=== PATIENT | male | born 1950 | race Hispanic/Latino ===

== ENCOUNTER 2018-04-27 12:37 | Inpatient (IN) | payer MEDICARE, OTHER ==
[2018-04-27] MEDS ORDERED: BABY ASPIRIN PO ONE (13:04)
--- NOTE | 2018-04-27 13:07 | Emergency Department Report ---
Blank Doc - Documentation Documentation: Patient is 67-year-old male with history of atrial fibrillation on Eliquis, hi story of hypertension and diabetes. Patient presented to the ER complaining of heart racing. Patient stated that he was taking his breakfast this morning when all of a sudden his heart rate jumped to 150 beats per minutes. Patient stated that he felt pressure in his chest that radiated to his left arm. Patient stated that symptoms improved now. He stated that he call his appliquer Dr. Amaya was advised him to come to the ER for evaluation. Patient EKG showed atrial fibrillation with no RVR. Labs and x-rays ordered.
[2018-04-27 13:52] LABS: Basophils # (Auto) 0.1 K/mm3 (0.0-0.1); Basophils % (Auto) 0.6 % (0.0-1.8); Eosinophils # (Auto) 0.4 K/mm3 (0.0-0.4); Eosinophils % (Auto) 2.5 % (0.0-4.3); Hematocrit 48.7 % (35.5-45.6); Hemoglobin 16.3 gm/dl (11.8-15.2); Lymphocytes # (Auto) 1.9 K/mm3 (1.2-5.4); Lymphocytes % (Auto) 13.2 % (13.4-35.0); Mean Corpuscular HGB Conc 34 % (32-34); Mean Corpuscular Volume 89 fl (84-94); Monocytes # (Auto) 1.1 K/mm3 (0.0-0.8); Platelet Count 226 K/mm3 (140-440); Red Blood Count 5.48 M/mm3 (3.65-5.03); Red Cell Distribution Width 13.3 % (13.2-15.2)
[2018-04-27 14:05] LABS: INR 1.02 (0.87-1.13); Partial Thromboplastin Time 27.7 Sec. (24.2-36.6)
--- NOTE | 2018-04-27 14:09 | Emergency Department Report ---
ED General Adult HPI - General Chief complaint: Arrhythmia/Palpitations Stated complaint: HEART PROBLEMS Time Seen by Provider: 04/27/18 13:00 Source: patient Mode of arrival: Ambulatory Limitations: No Limitations - History of Present Illness Initial comments: 67-year-old male states that his heart rate went up to 150-160 this morning. He developed tightness of his left arm which was persistent during his tachycardia. It has since resolved. He denies chest pain, pressure or tightness, dizziness, feeling like he was going to pass out. He states he took his usual medicine which includes metoprolol and diltiazem. He did not take an extra dose. He stated his heart rate improved and his left arm tightness resolved. The tightness involving his entire arm. It was not associated with dyspnea sweating or nausea. Patient states he is experienced this left arm tightness with atrial fibrillation in the past. The patient was first seen here in 2013 when he had a pleural effusion and thoracentesis associated with A. fib. 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 fib. He was restarted on Eliquis at that time. He sees Dr. Amaya. He states he was in sinus rhythm for a prolonged period of time prior to that and not on anticoagulants. He also states that perhaps about 3 months ago he had a what appears to be a nuclear stress test which was not followed by further study and presumed to be negative. He does have multiple cardiac risk factors but no known history of coronary artery disease. -: Gradual, hour(s) (arm tightness for approximately 1 hour ), days(s) (A. fib for days) Location: left, upper extremity Radiation: non-radiation Quality: other (tightness) Consistency: now resolved Improves with: none Worsens with: none Associated Symptoms: denies other symptoms (except as above described patient is aware of his irregular heart rate) Treatments Prior to Arrival: none - Related Data Home Medications Medication Instructions Recorded Confirmed Last Taken metFORMIN [Glucophage] 1,000 mg PO DAILY 04/24/13 04/27/18 07/06/13 1000mg Apixaban [Eliquis] 5 mg PO BID 04/27/18 04/27/18 Unknown Diltiazem HCl [Diltiazem ER] 180 mg PO DAILY 04/27/18 04/27/18 Unknown Metoprolol Tartrate 50 mg PO BID 04/27/18 04/27/18 Unknown Olmesartan (Nf) [Benicar (Nf)] 40 mg PO QDAY 04/27/18 04/27/18 Unknown Allergies Allergy/AdvReac Type Severity Reaction Status Date / Time No Known Allergies Allergy Verified 07/07/13 11:13 ED Review of Systems ROS: Stated complaint: HEART PROBLEMS Other details as noted in HPI Constitutional: denies: chills, fever Eyes: denies: eye pain, eye discharge, vision change ENT: denies: ear pain, throat pain Respiratory: denies: cough, shortness of breath, wheezing Cardiovascular: palpitations, other. denies: chest pain Endocrine: no symptoms reported Gastrointestinal: denies: abdominal pain, nausea, diarrhea Genitourinary: denies: urgency, dysuria Musculoskeletal: denies: back pain, joint swelling, arthralgia Skin: denies: rash, lesions Neurological: denies: headache, weakness, paresthesias Psychiatric: denies: anxiety, depression Hematological/Lymphatic: denies: easy bleeding, easy bruising ED Past Medical Hx - Past Medical History Hx Hypertension: Yes Hx Congestive Heart Failure: No Hx Diabetes: Yes Hx Arthritis: Yes Hx Asthma: No Hx COPD: No Additional medical history: A fib, spinal stenosis - Surgical History Past Surgical History?: No - Social History Smoking Status: Never Smoker Substance Use Type: None - Medications Home Medications: Home Medications Medication Instructions Recorded Confirmed Last Taken Type metFORMIN [Glucophage] 1,000 mg PO DAILY 04/24/13 04/27/18 07/06/13 History 1000mg Apixaban [Eliquis] 5 mg PO BID 04/27/18 04/27/18 Unknown History Diltiazem HCl [Diltiazem ER] 180 mg PO DAILY 04/27/18 04/27/18 Unknown History Metoprolol Tartrate 50 mg PO BID 04/27/18 04/27/18 Unknown History Olmesartan (Nf) [Benicar (Nf)] 40 mg PO QDAY 04/27/18 04/27/18 Unknown History ED Physical Exam - General Limitations: No Limitations General appearance: alert, in no apparent distress - Head Head exam: Present: atraumatic, normocephalic - Eye Eye exam: Present: normal appearance. Absent: scleral icterus - ENT ENT exam: Present: mucous membranes moist - Neck Neck exam: Present: normal inspection. Absent: tenderness, meningismus - Respiratory Respiratory exam: Present: normal lung sounds bilaterally. Absent: respiratory distress - Cardiovascular Cardiovascular Exam: Present: regular rate, irregular rhythm. Absent: systolic murmur, diastolic murmur, rubs, gallop - GI/Abdominal GI/Abdominal exam: Present: soft, normal bowel sounds. Absent: distended, t enderness, guarding, rebound - Rectal Rectal exam: Present: deferred - Extremities Exam Extremities exam: Present: normal inspection - Back Exam Back exam: Present: normal inspection - Neurological Exam Neurological exam: Present: alert, oriented X3, other (patient is not suspected of acute stroke he does say he has right lower extremity weakness secondary to spinal stenosis ). Absent: CN II-XII intact (perhaps slight left facial asymmetry), motor sensory deficit (no acute focal deficit) - Psychiatric Psychiatric exam: Present: normal affect, normal mood - Skin Skin exam: Present: warm, dry, intact, normal color. Absent: rash ED Course Vital Signs 04/27/18 04/27/18 04/27/18 12:48 13:40 13:46 Temperature 97.8 F Pulse Rate 101 H 81 79 Respiratory 18 15 15 Rate Blood Pressure 155/87 O2 Sat by Pulse 96 Oximetry 04/27/18 04/27/18 04/27/18 14:00 14:16 14:30 Temperature Pulse Rate 102 H 97 H 95 H Respiratory 16 19 18 Rate Blood Pressure 141/91 148/82 140/77 O2 Sat by Pulse Oximetry 04/27/18 14:46 Temperature Pulse Rate 93 H Respiratory 16 Rate Blood Pressure 132/87 O2 Sat by Pulse Oximetry - Reevaluation(s) Reevaluation #1: I discussed the case with Dr. Bowers. He requested patient be admitted to telemetry further care and evaluation. Consultation as per Dr. Bowers. 04/27/18 15:30 ED Medical Decision Making - Lab Data Result diagrams: 04/27/18 13:28 04/27/18 13:28 Laboratory Results - last 24 hr 04/27/18 04/27/18 04/27/18 13:28 13:28 13:28 WBC 14.2 H RBC 5.48 H Hgb 16.3 H Hct 48.7 H MCV 89 MCH 30 MCHC 34 RDW 13.3 Plt Count 226 Lymph % (Auto) 13.2 L [place] % (Auto) 8.0 H Eos % (Auto) 2.5 Baso % (Auto) 0.6 Lymph # 1.9 [place] # 1.1 H Eos # 0.4 Baso # 0.1 Seg Neutrophils % 75.7 H Seg Neutrophils # 10.8 H PT 13.8 INR 1.02 APTT 27.7 Sodium 140 Potassium 4.2 Chloride 102.0 Carbon Dioxide 28 Anion Gap 14 BUN 13 Creatinine 1.0 Estimated GFR > 60 BUN/Creatinine Ratio 13 Glucose 150 H Calcium 9.2 Troponin T < 0.010 - EKG Data -: EKG Interpreted by Me Rate: normal (atrial fibrillation at 85) - EKG Data Interpretation: no acute changes - Radiology Data Radiology results: report reviewed Chest x-ray no acute process Critical care attestation.: If time is entered above; I have spent that time in minutes in the direct care of this critically ill patient, excluding procedure time. ED Disposition Clinical Impression: Paroxysmal atrial fibrillation with RVR, Anginal equivalent Disposition: DC-09 OP ADMIT IP TO THIS HOSP Is pt being admited?: Yes Does the pt Need Aspirin: Yes Condition: Stable Instructions: Angina (ED) Referrals: PRIMARY CARE, [Primary Care Provider] - 3-5 Days Time of Disposition: 15:31
[2018-04-27 14:13] LABS: BUN/Creatinine Ratio 13; Blood Urea Nitrogen 13 mg/dL (9-20); Calcium 9.2 mg/dL (8.4-10.2); Hemolysis Index 17
--- NOTE | 2018-04-27 14:51 | XRay Report ---
ROUTINE CHEST, TWO VIEWS: HISTORY: chest pain. The trachea, heart, mediastinal contour, lung qureshi and bony thorax are unremarkable. IMPRESSION: No acute cardiopulmonary process.
[2018-04-27] MEDS ORDERED: ASPIRIN ONE (15:59)
--- NOTE | 2018-04-27 23:14 | History and Physical Report ---
History of Present Illness Date of examination: 04/27/18 Date of admission: 04/27/18 15:32 Chief complaint: Palpitations since AM History of present illness: 67-year-old male with pmh of HTN,T2dm Afib comes in for palitations and L arm tightness.No chest pain.No diaphoresis or SOB.Palpitations intermittent today.Afib was diagnosed about 3 months ago and was started on Eliquis.He follows with [facility] -Dr Amaya.No exertional dyspnea or chest pain.Apparently had a stress test 3 months ago which was negative.No cardiac cath in the past. Past Medical History Hx Hypertension: Yes Hx Diabetes: Yes Hx Arthritis: Yes Additional medical history: A fib, spinal stenosis Surgical History Past Surgical History?: No Social History Smoking Status: Never Smoker Substance Use Type: None Family History Htn Medications Home Medications: Home Medications Medication Instructions Recorded Confirmed Last Taken Type metFORMIN [Glucophage] 1,000 mg PO DAILY 04/24/13 04/27/18 07/06/13 History 1000mg Apixaban [Eliquis] 5 mg PO BID 04/27/18 04/27/18 Unknown History Diltiazem HCl [Diltiazem ER] 180 mg PO DAILY 04/27/18 04/27/18 Unknown History Metoprolol Tartrate 50 mg PO BID 04/27/18 04/27/18 Unknown History Olmesartan (Nf) [Benicar (Nf)] 40 mg PO QDAY 04/27/18 04/27/18 Unknown History Review of Systems ROS: Stated complaint: HEART PROBLEMS Other details as noted in HPI Constitutional: denies: chills, fever Eyes: denies: eye pain, eye discharge, vision change ENT: denies: ear pain, throat pain Respiratory: denies: cough, shortness of breath, wheezing Cardiovascular: palpitations, other. denies: chest pain Endocrine: no symptoms reported Gastrointestinal: denies: abdominal pain, nausea, diarrhea Genitourinary: denies: urgency, dysuria Musculoskeletal: denies: back pain, joint swelling, arthralgia Skin: denies: rash, lesions Neurological: denies: headache, weakness, paresthesias Psychiatric: denies: anxiety, depression Hematological/Lymphatic: denies: easy bleeding, easy bruising Medications and Allergies Allergies Allergy/AdvReac Type Severity Reaction Status Date / Time No Known Allergies Allergy Verified 03/19/14 11:13 Home Medications Medication Instructions Recorded Confirmed Last Taken Type metFORMIN [Glucophage] 1,000 mg PO DAILY 04/24/13 04/27/18 07/06/13 History 1000mg Apixaban [Eliquis] 5 mg PO BID 04/27/18 04/27/18 Unknown History Diltiazem HCl [Diltiazem ER] 180 mg PO DAILY 04/27/18 04/27/18 Unknown History Metoprolol Tartrate 50 mg PO BID 04/27/18 04/27/18 Unknown History Olmesartan (Nf) [Benicar (Nf)] 40 mg PO QDAY 04/27/18 04/27/18 Unknown History Exam - Constitutional Vitals: Temp Pulse Resp BP Pulse Ox 97.6 F 58 L 17 104/66 96 04/27/18 19:39 04/27/18 19:39 04/27/18 22:00 04/27/18 19:39 04/27/18 22:00 General appearance: Present: no acute distress, well-nourished - EENT Eyes: Present: PERRL ENT: hearing intact, clear oral mucosa - Neck Neck: Present: supple, normal ROM - Respiratory Respiratory effort: normal Respiratory: bilateral: CTA - Cardiovascular Heart rate: 98 Rhythm: regular Heart Sounds: Present: S1 & S2. Absent: rub, click - Extremities Extremities: no ischemia, pulses intact, pulses symmetrical, No edema Peripheral Pulses: within normal limits - Abdominal General gastrointestinal: Present: soft, non-tender, non-distended, normal bowel sounds Male genitourinary: Present: normal - Rectal Rectal Exam: deferred - Integumentary Integumentary: Present: clear, warm, dry - Musculoskeletal Musculoskeletal: gait normal, strength equal bilaterally - Psychiatric Psychiatric: appropriate mood/affect, intact judgment & insight - Neurologic Neurologic: CNII-XII intact, moves all extremities - Allied Health Allied health notes reviewed: nursing Results - Labs CBC & Chem 7: 04/27/18 13:28 04/27/18 13:28 Labs: Laboratory Last Values WBC 14.2 K/mm3 (4.5-11.0) H 04/27/18 13:28 RBC 5.48 M/mm3 (3.65-5.03) H 04/27/18 13:28 Hgb 16.3 gm/dl (11.8-15.2) H 04/27/18 13:28 Hct 48.7 % (35.5-45.6) H 04/27/18 13:28 MCV 89 fl (84-94) 04/27/18 13:28 MCH 30 pg (28-32) 04/27/18 13:28 MCHC 34 % (32-34) 04/27/18 13:28 RDW 13.3 % (13.2-15.2) 04/27/18 13:28 Plt Count 226 K/mm3 (140-440) 04/27/18 13:28 Lymph % (Auto) 13.2 % (13.4-35.0) L 04/27/18 13:28 [place] % (Auto) 8.0 % (0.0-7.3) H 04/27/18 13:28 Eos % (Auto) 2.5 % (0.0-4.3) 04/27/18 13:28 Baso % (Auto) 0.6 % (0.0-1.8) 04/27/18 13:28 Lymph # 1.9 K/mm3 (1.2-5.4) 04/27/18 13:28 [place] # 1.1 K/mm3 (0.0-0.8) H 04/27/18 13:28 Eos # 0.4 K/mm3 (0.0-0.4) 04/27/18 13:28 Baso # 0.1 K/mm3 (0.0-0.1) 04/27/18 13:28 Seg Neutrophils % 75.7 % (40.0-70.0) H 04/27/18 13:28 Seg Neutrophils # 10.8 K/mm3 (1.8-7.7) H 04/27/18 13:28 PT 13.8 Sec. (12.2-14.9) 04/27/18 13:28 INR 1.02 (0.87-1.13) 04/27/18 13:28 APTT 27.7 Sec. (24.2-36.6) 04/27/18 13:28 Sodium 140 mmol/L (137-145) 04/27/18 13:28 Potassium 4.2 mmol/L (3.6-5.0) 04/27/18 13:28 Chloride 102.0 mmol/L (98-107) 04/27/18 13:28 Carbon Dioxide 28 mmol/L (22-30) 04/27/18 13:28 Anion Gap 14 mmol/L 04/27/18 13:28 BUN 13 mg/dL (9-20) 04/27/18 13:28 Creatinine 1.0 mg/dL (0.8-1.5) 04/27/18 13:28 Estimated GFR > 60 ml/min 04/27/18 13:28 BUN/Creatinine Ratio 13 % 04/27/18 13:28 Glucose 150 mg/dL (75-100) H 04/27/18 13:28 Calcium 9.2 mg/dL (8.4-10.2) 04/27/18 13:28 Troponin T < 0.010 ng/mL (0.00-0.029) 04/27/18 19:39 - Imaging and Cardiology EKG: report reviewed (A fib 88/min) Chest x-ray: report reviewed (NAF) Assessment and Plan Advance Directives: Yes (Full code) VTE prophylaxis?: Chemical Plan of care discussed with patient/family: Yes - Patient Problems (1) Anginal equivalent Current Visit: Yes Status: Acute Plan to address problem: Had a recent Lexiscan-3 months ago will defer to Cardiology reg stress test Will get Serial Troponins and ECHO (2) Diabetes Onset Date: 05/01/13 Current Visit: No Status: Chronic Qualifiers: Diabetes mellitus type: type 2 Plan to address problem: Cont Metformin and coverage Check A1c (3) Hypertension Onset Date: 05/01/13 Current Visit: No Status: Chronic Qualifiers: Hypertension type: essential hypertension Qualified Code(s): I10 - Essential (primary) hypertension Plan to address problem: Cont antihypertensives (4) Paroxysmal atrial fibrillation with RVR Current Visit: Yes Status: Acute Plan to address problem: Now rate controlled Cont Eliquis If RVR to add Amiodarone if Cardiology agrees (5) Leukocytosis Current Visit: Yes Status: Acute Qualifiers: Leukocytosis type: unspecified Qualified Code(s): D72.829 - Elevated white blood cell count, unspecified Plan to address problem: Probably demargination (6) DVT prophylaxis Current Visit: Yes Status: Acute Plan to address problem: On Eliquis and GI prophlaxis
[2018-04-27] MEDS ORDERED: TYLENOL PO PRN (23:45)
[2018-04-27] MEDS ORDERED: ZOFRAN IV PRN (23:45)
[2018-04-27] MEDS ORDERED: DILAUDID IV PRN (23:45)
[2018-04-27] MEDS ORDERED: AMBIEN PO PRN (23:45)
[2018-04-27] MEDS ORDERED: SODIUM CHLORIDE FLUSH SYRINGE 10 ML IV PRN (23:45)
[2018-04-27] MEDS ORDERED: PERCOCET 5/325 PO PRN (23:45)
[2018-04-28] MEDS: LOPRESSOR PO SCH ×2 (00:32→10:42)
[2018-04-28] MEDS: ELIQUIS PO SCH ×3 (00:32→21:25)
[2018-04-28 06:02] LABS: Basophils # (Auto) 0.1 K/mm3 (0.0-0.1); Basophils % (Auto) 0.8 % (0.0-1.8); Eosinophils # (Auto) 0.3 K/mm3 (0.0-0.4); Eosinophils % (Auto) 2.6 % (0.0-4.3); Hematocrit 47.6 % (35.5-45.6); Hemoglobin 16.2 gm/dl (11.8-15.2); Lymphocytes # (Auto) 2.6 K/mm3 (1.2-5.4); Lymphocytes % (Auto) 24.3 % (13.4-35.0); Mean Corpuscular HGB Conc 34 % (32-34); Mean Corpuscular Volume 88 fl (84-94); Monocytes % (Auto) 8.8 % (0.0-7.3); Platelet Count 193 K/mm3 (140-440); Red Blood Count 5.39 M/mm3 (3.65-5.03); Red Cell Distribution Width 13.3 % (13.2-15.2)
[2018-04-28 06:18] LABS: Alanine Aminotransferase 21 units/L (7-56); Albumin 3.6 g/dL (3.9-5); BUN/Creatinine Ratio 19; Blood Urea Nitrogen 15 mg/dL (9-20); Calcium 8.8 mg/dL (8.4-10.2); Hemolysis Index 17
[2018-04-28] MEDS: HumaLOG SUB-Q SCH ×4 (07:59→23:26)
[2018-04-28] MEDS ORDERED: NON-FORMULARY (Diltiazem Hcl [Diltiazem 24hr Er] 180 MG) PO SCH (10:00)
[2018-04-28] MEDS ORDERED: OLMESARTAN 40 MG PO SCH (10:00)
[2018-04-28] MEDS: CARDIZEM CD PO SCH (10:40)
[2018-04-28] MEDS: COZAAR PO SCH (10:41)
[2018-04-28] MEDS: PEPCID PO SCH ×2 (10:42→21:24)
[2018-04-28] MEDS: SODIUM CHLORIDE FLUSH SYRINGE 10 ML IV SCH ×2 (10:43→21:24)
[2018-04-28] MEDS: GLUCOPHAGE PO SCH (10:46)
--- NOTE | 2018-04-28 10:46 | Consultation ---
Addendum entered and electronically signed by JANET LANDRY MD 04/28/18 14:01: The patient has a history of paroxysmal atrial fibrillation in a recent outpatie nt management of an acute exacerbation of atrial fibrillation. On his last office visit a week ago, atrial fibrillation had resolved on management with diltiazem and metoprolol. He presents to the hospital at this time with a recurrence of symptomatic atrial fibrillation. Recommendations: In addition to AV felicia blocking agents, will add amiodarone to his regimen to assist with atrial fibrillation suppression. Tomorrow morning, if he remains in symptomatic fibrillation, will offer a NAIF guided direct current cardioversion. Original Note: History of Present Illness Consult date: 04/28/18 Consult reason: atrial fibrillation History of present illness: Patient is a 67 year old male with a history of paroxysmal atrial fibrillation on eliquis for CVA prophylaxis who presented with complaints of palpitations. Patient denies unusual shortness of breath, chest pain and dizziness. There were no reports of syncope. An ECG on presentation shows atrial fibrillation with a well controlled ventricular rate. A cardiac consultation was requested for further evaluation. Patient is [facility] to [facility]. His latest cardiac workup was done as an outpatient 3 months ago. He had a normal persantine thallium stress test and a normal ejection fraction, 60% on an echocardiogram. Medications and Allergies Allergies Allergy/AdvReac Type Severity Reaction Status Date / Time No Known Allergies Allergy Verified 07/07/13 11:13 Home Medications Medication Instructions Recorded Confirmed Last Taken Type metFORMIN [Glucophage] 1,000 mg PO DAILY 04/24/13 04/27/18 07/06/13 History 1000mg Apixaban [Eliquis] 5 mg PO BID 04/27/18 04/27/18 Unknown History Diltiazem HCl [Diltiazem ER] 180 mg PO DAILY 04/27/18 04/27/18 Unknown History Metoprolol Tartrate 50 mg PO BID 04/27/18 04/27/18 Unknown History Olmesartan (Nf) [Benicar (Nf)] 40 mg PO QDAY 04/27/18 04/27/18 Unknown History Active Meds: Active Medications Acetaminophen (Tylenol) 650 mg PO Q4H PRN PRN Reason: Pain MILD(1-3)/Fever >100.5/CHA Apixaban (Eliquis) 5 mg PO BID [facility]; Protocol Last Admin: 04/28/18 00:32 Dose: 5 mg Documented by: Diltiazem HCl (Cardizem Cd) 180 mg PO QDAY [facility] Famotidine (Pepcid) 20 mg PO BID [facility] Hydromorphone HCl (Dilaudid) 0.5 mg IV Q3H PRN PRN Reason: Pain , Severe (7-10) Insulin Human Lispro (Humalog) 0 unit SUB-Q ACHS [facility]; Protocol Last Admin: 04/28/18 07:59 Dose: Not Given Documented by: Losartan Potassium (Cozaar) 100 mg PO QDAY [facility] Metformin HCl (Glucophage) 1,000 mg PO QDDIAB [facility] Metoprolol Tartrate (Lopressor) 50 mg PO BID [facility] Last Admin: 04/28/18 00:32 Dose: Not Given Documented by: Ondansetron HCl (Zofran) 4 mg IV Q8H PRN PRN Reason: Nausea And Vomiting Oxycodone/Acetaminophen (Percocet 5/325) 1 tab PO Q6H PRN PRN Reason: Pain, Moderate (4-6) Sodium Chloride (Sodium Chloride Flush Syringe 10 Ml) 10 ml IV BID [facility] Sodium Chloride (Sodium Chloride Flush Syringe 10 Ml) 10 ml IV PRN PRN PRN Reason: LINE FLUSH Zolpidem Tartrate (Ambien) 5 mg PO QHS PRN PRN Reason: Insomnia Physical Examination Vital Signs Temp Pulse Resp BP Pulse Ox 97.8 F 101 H 18 155/87 96 04/27/18 12:48 04/27/18 12:48 04/27/18 12:48 04/27/18 12:48 04/27/18 12:48 General appearance: no acute distress HEENT: Positive: PERRL Cardiac: Positive: irregularly irregular Lungs: Positive: Decreased Breath Sounds Neuro: Positive: Grossly Intact Extremities: Absent: edema Results 04/28/18 04:50 04/28/18 04:50 Cardiac Enzymes 04/28/18 Range/Units 04:50 AST 11 (5-40) units/L Coagulation 04/27/18 Range/Units 13:28 PT 13.8 (12.2-14.9) Sec. INR 1.02 (0.87-1.13) APTT 27.7 (24.2-36.6) Sec. CBC 04/27/18 04/28/18 Range/Units 13:28 04:50 WBC 14.2 H 10.9 (4.5-11.0) K/mm3 RBC 5.48 H 5.39 H (3.65-5.03) M/mm3 Hgb 16.3 H 16.2 H (11.8-15.2) gm/dl Hct 48.7 H 47.6 H (35.5-45.6) % Plt Count 226 193 (140-440) K/mm3 Lymph # 1.9 2.6 (1.2-5.4) K/mm3 [place] # 1.1 H 1.0 H (0.0-0.8) K/mm3 Eos # 0.4 0.3 (0.0-0.4) K/mm3 Baso # 0.1 0.1 (0.0-0.1) K/mm3 Comprehensive Metabolic Panel 04/27/18 04/28/18 Range/Units 13:28 04:50 Sodium 140 138 (137-145) mmol/L Potassium 4.2 3.6 (3.6-5.0) mmol/L Chloride 102.0 100.8 (98-107) mmol/L Carbon Dioxide 28 25 (22-30) mmol/L BUN 13 15 (9-20) mg/dL Creatinine 1.0 0.8 (0.8-1.5) mg/dL Glucose 150 H 116 H (75-100) mg/dL Calcium 9.2 8.8 (8.4-10.2) mg/dL AST 11 (5-40) units/L ALT 21 (7-56) units/L Alkaline Phosphatase 99 (35-129) units/L Total Protein 5.8 L (6.3-8.2) g/dL Albumin 3.6 L (3.9-5) g/dL Assessment and Plan Atrial fibrillation, persists on eliquis for oral anticoagulation and metoprolol and diltiazem. Hypertension Diabetes 01/2018 cardiac test results: normal EF, 60% on echo. normal persantine thallium stress test. negative carotid doppler.
--- NOTE | 2018-04-28 13:24 | Progress Note ---
Assessment and Plan Assessment and plan: Patient is a 67 yo white man with a history of hypertension, type 2 DM and Afib on eliquis who presents to [facility] ED with palpitations and left arm numbness. He adamantly denies chest pains. He was found to have afib RVR, HR at home was 140s-150s. He took his medication 15 minutes prior to symptoms and high heart rate. Afib with RVR, highly symptomatic: treat with amiodarone, Cardiology consulted, possible Cardioversion tomorrow Type 2 DM: ssi Hypertension: bblocker History Interval history: Patient was seen and examined. Follow-up on current diagnosis of Afib. Overnight uneventful. Patient denies any chest pain, shortness breath, nausea/vomiting or severe headaches. Imaging, nursing note, chart, labs and old chart reviewed. Discussed with patient. Hospitalist Physical - Physical exam Narrative exam: Gen: WDWN, NAD, Awake, Alert, Orientated HEENT: NCAT, EOMI, PERRL, OP Clear Neck: supple, no adenopathy, no thyromegaly, no JVD CVS/Heart: irregular irregular, normal S1S2, pulses present bilaterally Chest/Lungs: CTA B, Symmetrical chest expansion, good air entry bilaterally GI/Abdomen: soft, NTND, good bowel sounds, no guarding or rebound /Bladder: no suprapubic tenderness, no CVA or paraspinal tenderness Extermity/Skin: no c/c/e, no obvious rash MSK: FROM x 4 Neuro: CN 2-12 grossly intact, no new focal deficits Psych: calm - Constitutional Vitals: Temp Pulse Resp BP Pulse Ox 98.4 F 92 H 20 114/69 97 04/28/18 10:40 04/28/18 10:42 04/28/18 10:40 04/28/18 10:42 04/28/18 10:40 General appearance: Present: no acute distress Results - Labs CBC & Chem 7: 04/28/18 04:50 04/28/18 04:50 Labs: Laboratory Last Values WBC 10.9 K/mm3 (4.5-11.0) 04/28/18 04:50 RBC 5.39 M/mm3 (3.65-5.03) H 04/28/18 04:50 Hgb 16.2 gm/dl (11.8-15.2) H 04/28/18 04:50 Hct 47.6 % (35.5-45.6) H 04/28/18 04:50 MCV 88 fl (84-94) 04/28/18 04:50 MCH 30 pg (28-32) 04/28/18 04:50 MCHC 34 % (32-34) 04/28/18 04:50 RDW 13.3 % (13.2-15.2) 04/28/18 04:50 Plt Count 193 K/mm3 (140-440) 04/28/18 04:50 Lymph % (Auto) 24.3 % (13.4-35.0) 04/28/18 04:50 [place] % (Auto) 8.8 % (0.0-7.3) H 04/28/18 04:50 Eos % (Auto) 2.6 % (0.0-4.3) 04/28/18 04:50 Baso % (Auto) 0.8 % (0.0-1.8) 04/28/18 04:50 Lymph # 2.6 K/mm3 (1.2-5.4) 04/28/18 04:50 [place] # 1.0 K/mm3 (0.0-0.8) H 04/28/18 04:50 Eos # 0.3 K/mm3 (0.0-0.4) 04/28/18 04:50 Baso # 0.1 K/mm3 (0.0-0.1) 04/28/18 04:50 Seg Neutrophils % 63.5 % (40.0-70.0) 04/28/18 04:50 Seg Neutrophils # 6.9 K/mm3 (1.8-7.7) 04/28/18 04:50 PT 13.8 Sec. (12.2-14.9) 04/27/18 13:28 INR 1.02 (0.87-1.13) 04/27/18 13:28 APTT 27.7 Sec. (24.2-36.6) 04/27/18 13:28 Sodium 138 mmol/L (137-145) 04/28/18 04:50 Potassium 3.6 mmol/L (3.6-5.0) 04/28/18 04:50 Chloride 100.8 mmol/L (98-107) 04/28/18 04:50 Carbon Dioxide 25 mmol/L (22-30) 04/28/18 04:50 Anion Gap 16 mmol/L 04/28/18 04:50 BUN 15 mg/dL (9-20) 04/28/18 04:50 Creatinine 0.8 mg/dL (0.8-1.5) 04/28/18 04:50 Estimated GFR > 60 ml/min 04/28/18 04:50 BUN/Creatinine Ratio 19 % 04/28/18 04:50 Glucose 116 mg/dL (75-100) H 04/28/18 04:50 Hemoglobin A1c 6.8 % (4-6) H 04/27/18 Unknown Calcium 8.8 mg/dL (8.4-10.2) 04/28/18 04:50 Total Bilirubin 0.40 mg/dL (0.1-1.2) 04/28/18 04:50 AST 11 units/L (5-40) 04/28/18 04:50 ALT 21 units/L (7-56) 04/28/18 04:50 Alkaline Phosphatase 99 units/L (35-129) 04/28/18 04:50 Troponin T < 0.010 ng/mL (0.00-0.029) 04/27/18 19:39 Total Protein 5.8 g/dL (6.3-8.2) L 04/28/18 04:50 Albumin 3.6 g/dL (3.9-5) L 04/28/18 04:50 Albumin/Globulin Ratio 1.6 % 04/28/18 04:50
[2018-04-28] MEDS ORDERED: CORDARONE 150 MG in D5W 97 ML IV ONE (14:00)
[2018-04-28] MEDS: CORDARONE PO SCH (21:25)
[2018-04-29] MEDS: HumaLOG SUB-Q SCH ×2 (07:48→12:05)
[2018-04-29] MEDS ORDERED: DIPRIVAN 10 MG/ML IV ONE ×2 (08:10)
[2018-04-29] MEDS ORDERED: XYLOCAINE MPF 2% ONE (08:11)
--- NOTE | 2018-04-29 08:23 | Progress Note ---
Assessment and Plan Atrial fibrillation, paroxysmal Patient is back in SR spontaneously Systemic Hypertension Diabetes 01/2018 cardiac test results: normal EF, 60% on echo. normal persantine thallium stress test. negative carotid doppler Recommendations: May go home on the following regimen Diltiazem CD 180 mg po daily Amiodarone 200 mg po bid Eliquis 5 mg po bid Follow-up with Dr Amaya will be scheduled prior to discharge Subjective Date of service: 04/29/18 Principal diagnosis: Atrial fibrillation with RVR Interval history: Patient is back in SR this morning He denies chest pain or shortness of breath NAIF cardioversion cancelled Objective Vital Signs Temp Pulse Pulse Resp Resp BP Pulse Ox 04/29/18 04:31 98.1 F 54 L 20 123/71 97 04/29/18 00:02 98.5 F 56 L 20 122/70 98 04/28/18 22:00 60 17 04/28/18 21:48 97 04/28/18 20:07 97.9 F 58 L 20 125/67 99 04/28/18 19:48 17 04/28/18 19:09 59 L 04/28/18 16:31 98.1 F 57 L 20 127/68 98 04/28/18 16:00 58 L 04/28/18 10:42 92 H 114/69 04/28/18 10:41 92 H 114/69 04/28/18 10:40 98.4 F 97 H 20 114/69 97 - Physical Examination HEENT: Positive: PERRL Neck: Positive: neck supple Cardiac: Positive: Reg Rate and Rhythm Lungs: Positive: Normal Exam Neuro: Positive: Grossly Intact Extremities: Absent: edema - Imaging and Cardiology EKG: report reviewed (A fib 88/min)
[2018-04-29] MEDS ORDERED: NACL 0.9% 1000 ML 1,000 ML IV SCH (09:00)
[2018-04-29] MEDS ORDERED: HURRICAINE ONE 20% TOPICAL SPRAY MM NR (09:00)
[2018-04-29] MEDS: PEPCID PO SCH (09:46)
[2018-04-29] MEDS: CORDARONE PO SCH (09:46)
[2018-04-29] MEDS: GLUCOPHAGE PO SCH (09:46)
[2018-04-29] MEDS: ELIQUIS PO SCH (09:46)
[2018-04-29] MEDS: CARDIZEM CD PO SCH (09:47)
[2018-04-29] MEDS: COZAAR PO SCH (09:48)
[2018-04-29] MEDS: SODIUM CHLORIDE FLUSH SYRINGE 10 ML IV SCH (09:48)
--- NOTE | 2018-04-29 12:28 | Discharge Summary ---
Providers - Providers Date of Admission: 04/27/18 15:32 Date of discharge: 04/29/18 Attending physician: JEANETH SCHAFER 04/27/18 23:45 Consult to Physician [CONS] Routine Comment: Consulting Provider: JANET LANDRY Physician Instructions: Reason For Exam: Chest pain and A fib Primary care physician: [employer] Hospitalization Condition: Stable Hospital course: Patient is a 67 yo white man with a history of hypertension, type 2 DM and Afib on eliquis who presents to [facility] ED with palpitations and left arm numbness. He adamantly denies chest pains. He was found to have afib RVR, HR at home was 140s-150s. He took his medication 15 minutes prior to symptoms and high heart rate. Afib with RVR, highly symptomatic: treated with amiodarone which he converted to sinus and scheduled Cardioversion was cancelled. Type 2 DM: Hypertension: New meds: Diltiazem CD 180 mg po daily Amiodarone 200 mg po bid Eliquis 5 mg po bid Disposition: TO HOME OR SELFCARE Time spent for discharge: 32 min Core Measure Documentation - Palliative Care Palliative Care/ Comfort Measures: Not Applicable - Core Measures Any of the following diagnoses?: none - VTE Discharge Requirements Deep Vein Thrombosis/Pulmonary Embolism Present on Admission: No Has pt received <5 days of overlap therapy or INR<2.0: No Anticoagulant overlap therapy prescribed at discharge: No Contraindication No Overlap Therapy order at DC: Not Indicated Exam - Physical Exam Narrative exam: Gen: WDWN, NAD, Awake, Alert, Orientated HEENT: NCAT, EOMI, PERRL, OP Clear Neck: supple, no adenopathy, no thyromegaly, no JVD CVS/Heart: rrr, normal S1S2, pulses present bilaterally Chest/Lungs: CTA B, Symmetrical chest expansion, good air entry bilaterally GI/Abdomen: soft, NTND, good bowel sounds, no guarding or rebound /Bladder: no suprapubic tenderness, no CVA or paraspinal tenderness Extermity/Skin: no c/c/e, no obvious rash MSK: FROM x 4 Neuro: CN 2-12 grossly intact, no new focal deficits Psych: calm - Constitutional Vitals: Temp Pulse Resp BP Pulse Ox 97.8 F 61 16 116/67 98 04/29/18 07:23 04/29/18 09:48 04/29/18 07:23 04/29/18 09:48 04/29/18 07:23 Plan Activity: other (no strenous activity unless cleared by Cardiology) Diet: low salt, diabetic Follow up with: PRIMARY CARE, [Primary Care Provider] - 3-5 Days JANET LANDRY MD [Staff Physician] - 7 Days Prescriptions: Amiodarone [Cordarone 200 MG TAB] 200 mg PO BID #60 tablet Apixaban [Eliquis] 5 mg PO BID #60 tablet Diltiazem HCl [Diltiazem 24Hr ER] 180 mg PO DAILY #30 tab.er.24h
[2018-04-29 14:22] VITALS: BP 137/74
[2018-04-30] MEDS ORDERED: CORDARONE PO SCH (10:00)
== END 2018-04-29 14:26 | disposition home or self-care (01) | DRG 310 ==
LOC: ED 12:37 → 4A 15:32
PROVIDERS: ADMIT Internal Medicine; ATTEND Internal Medicine
DX: I48.0 Paroxysmal atrial fibrillation (principal); I20.8 Other forms of angina pectoris; E11.9 Type 2 diabetes mellitus without complications; I10 Essential (primary) hypertension; D72.829 Elevated white blood cell count, unspecified; M19.90 Unspecified osteoarthritis, unspecified site; Z79.899 Other long term (current) drug therapy; Z82.49 Family history of ischemic heart disease and other diseases of the circulatory system
CPT/HCPCS: 36415; 71046; 80048; 80053; 82962; 83036; 84484; 85025; 85610; 85730; 93005; 93010; 93306; G0378; J0282; J2704